=== PATIENT | female | born 1975 | race African-American/Black ===

== ENCOUNTER 2016-10-23 18:50 | Emergency (ER) | payer SELFPAY ==
[~2016-10-23] VITALS: Ht 154.9 cm; Wt 46.0 kg
[2016-10-23] MEDS ORDERED: IBUPROFEN 800MG TABLET PO ONE (22:00)
[2016-10-24 00:20] VITALS: BP 128/76
== END 2016-10-24 00:28 | disposition home or self-care (01) ==
LOC: ER 20:24
DX: S63.690A Other sprain of right index finger, initial encounter (principal); F17.200 Nicotine dependence, unspecified, uncomplicated; Z98.51 Tubal ligation status; X58.XXXA Exposure to other specified factors, initial encounter; Y93.89 Activity, other specified; Y99.8 Other external cause status; Y92.89 Other specified places as the place of occurrence of the external cause
CPT/HCPCS: 29130; 73130; 81025; 99284